=== PATIENT | female | born 1935 | race Caucasian/White ===

== ENCOUNTER 2021-02-10 20:50 | Emergency (ER) | payer MEDICARE, BC ==
--- NOTE | 2021-02-10 22:30 | EDM.PDOC ---
ED HPI GENERAL MEDICAL PROBLEM - General Chief Complaint: Syncope Stated Complaint: FAINTING Time Seen by Provider: 02/10/21 20:55 Source of Information: Reports: Patient History Limitations: Reports: No Limitations - History of Present Illness INITIAL COMMENTS - FREE TEXT/NARRATIVE: Patient presented to the ED because of syncopal episode while defecating. She is sitting the commode when all of a sudden she felt dizzy. She has nausea and vomiting x1 and loose stools for 2 days. There is no abdominal pain, fever, chills. No UTI s/s. Treatments PHP CONSULTANT: Reports: EKG, Isotonic Fluid Other Treatments PHP CONSULTANT: 20g INT Right Hip Pain Score (Numeric/FACES): 4 - Related Data Allergies Allergy/AdvReac Type Severity Reaction Status Date / Time No Known Allergies Allergy Verified 02/10/21 21:47 ED ROS GENERAL - Review of Systems Review Of Systems: See Below Constitutional: Reports: No Symptoms HEENT: Reports: No Symptoms Respiratory: Reports: No Symptoms Cardiovascular: Reports: No Symptoms Endocrine: Reports: No Symptoms GI/Abdominal: Reports: No Symptoms : Reports: No Symptoms Musculoskeletal: Reports: No Symptoms Skin: Reports: No Symptoms Neurological: Reports: Syncope Psychiatric: Reports: No Symptoms Hematologic/Lymphatic: Reports: No Symptoms Immunologic: Reports: No Symptoms ED EXAM, NEURO - Physical Exam Exam: See Below Exam Limited By: No Limitations General Appearance: Alert, No Apparent Distress Ears: Normal External Exam, Normal Canal, Hearing Grossly Normal Nose: Normal Inspection, Normal Mucosa, No Blood Throat/Mouth: Normal Inspection, Normal Lips, Normal Teeth, Normal Gums Head Exam: Atraumatic, Normocephalic Neck: Normal Inspection, Supple, Non-Tender, Full Range of Motion Respiratory/Chest: No Respiratory Distress, Lungs Clear, Normal Breath Sounds, No Accessory Muscle Use, Chest Non-Tender Cardiovascular: Normal Peripheral Pulses, Regular Rate, Rhythm, No Edema, No Gallop, No JVD, No Murmur, No Rub GI/Abdominal: Normal Bowel Sounds, Soft, Non-Tender, No Organomegaly, No Distention, No Abnormal Bruit Neurological: Alert, Normal Mood/Affect, Normal Dorsiflexion, CN II-XII Intact, Normal Plantar Flexion, Normal Gait, Normal Reflexes Back Exam: Normal Inspection, Full Range of Motion Extremities: Normal Inspection, Normal Range of Motion, Non-Tender, No Pedal Edema, Normal Capillary Refill Psychiatric: Normal Affect, Normal Mood Skin Exam: Warm, Dry, Intact, Normal Color Course - Vital Signs Text/Narrative:: Lab/EKG/ result was reviewed and discussed with patient Lomotil 2 tabs po x1 Last Recorded V/S: Last Vital Signs Temp 36.7 C 02/10/21 20:50 Pulse 82 02/10/21 20:50 Resp 18 02/10/21 20:50 BP 149/71 H 02/10/21 20:50 Pulse Ox 99 02/10/21 20:50 - Orders/Labs/Meds Labs: Laboratory Tests 02/10/21 02/10/21 Range/Units 20:55 20:55 WBC 10.4 H (3.0-10.3) x10-3/uL RBC 3.11 L (3.60-5.20) x10(6)uL Hgb 10.5 L (11.4-15.5) g/dL Hct 31.4 L (34.2-48.2) % MCV 101.1 H (76.7-100.5) fL MCH 33.7 (23.9-33.9) pg MCHC 33.3 (31.9-34.8) g/dL RDW 13.2 (12.3-16.5) % Plt Count 252 (151-488) x10(3)uL MPV 7.7 (7.1-12.4) fL Neut % (Auto) 84.9 H (30.8-76.2) % Lymph % (Auto) 7.9 L (18.4-52.1) % Kimble % (Auto) 6.7 (4.4-15.7) % Eos % (Auto) 0.4 L (0.6-8.1) % Baso % (Auto) 0.1 L (0.2-1.5) % Neut # (Auto) 8.8 H (1.5-6.3) x10-3/uL Lymph # (Auto) 0.8 L (1.0-4.4) x10-3/uL Kimble # (Auto) 0.7 (0.3-1.0) x10-3/uL Eos # (Auto) 0.0 (0.0-0.8) x10-3/uL Baso # (Auto) 0.0 (0.0-0.1) x10-3/uL Sodium 135 (135-145) mmol/L Potassium 3.7 (3.5-5.3) mmol/L Chloride 97 L (100-110) mmol/L Carbon Dioxide 27 (21-32) mmol/L BUN 21 H (7-18) mg/dL Creatinine 1.1 H (0.55-1.02) mg/dL Est Cr Clr Drug Dosing TNP Estimated GFR (MDRD) 47 L (>60) BUN/Creatinine Ratio 19.1 (9-20) Glucose 138 H (80-116) mg/dL Calcium 9.1 (8.6-10.2) mg/dL Meds: Medications Discontinued Medications Generic Name Dose Route Start Last Admin Trade Name Freq PRN Reason Stop Dose Admin Loperamide HCl 2 mg 02/10/21 22:57 Loperamide 2 Mg Cap PO Q6H PRN Diarrhea Loperamide HCl Confirm 02/10/21 22:56 02/10/21 23:15 Loperamide 2 Mg Cap Administered 02/10/21 22:57 4 mg Dose Administration 4 mg .ROUTE .STK-MED ONE Departure - Departure Time of Disposition: 22:45 Disposition: Home, Self-Care 01 Condition: Good Clinical Impression: Dehydration, Vasovagal syncope, Anemia - Discharge Information Instructions: Dehydration, Elderly, [id number], Syncope, [id number] Referrals: PCP,None [Primary Care Provider] - Forms: ED Department Discharge Additional Instructions: Please read discharge instructions on syncope and dehydration Drink at least 2 liters of water daily Imodium(over the counter) 2 tablets every 6 hours until you diarrhea stops Follow up as needed
[2021-02-10] MEDS ORDERED: Loperamide 2 MG Cap ONE (22:56)
[2021-02-10] MEDS ORDERED: Loperamide 2 MG Cap PO PRN (22:57)
--- NOTE | 2021-02-12 16:40 | PCM.EKG ---
#1 Interpretation EKG Date: 02/10/21 Time: 20:51 Rhythm: NSR Rate (Beats/Min): 83 Girard: Normal P-Wave: Present QRS: Normal ST-T: Normal QT: Normal NJ/PQ Interval: 201 Comparison: NA - No Prior EKG EKG Interpretation Comments: NSR LAE
== END 2021-02-10 23:20 | disposition home or self-care (01) ==
LOC: FB.ED 20:50
DX: R55 Syncope and collapse (principal); E86.0 Dehydration; D64.9 Anemia, unspecified
CPT/HCPCS: 36415; 80048; 85025; 93005; 99284-25; A9270-GY